=== PATIENT | male | born 1995 | race Two or more races ===

== ENCOUNTER 2016-05-09 08:11 | Emergency (ER) | payer OTHER ==
[2016-05-09] MEDS ORDERED: SODIUM CHLORIDE 0.9% 1,000 ML ONE ×2 (09:16→09:52)
[2016-05-09] MEDS ORDERED: DILTIAZEM HCL 5 MG/ML 5ML VIAL IV ONE (09:16)
[2016-05-09 09:32] LABS: ABSOLUTE NEUTROPHIL COUNT 8.6 K/mm3 (1.8-7.7); BASO % 0.2 % (0.2-1.0); EOS % 0.1 % (0.9-2.9); HEMATOCRIT 50.1 % (32.0-52.0); HEMOGLOBIN 16.9 gm/l (14.0-18.0); IMM NEUT% 0.3 % (0-1); LYMPH # 1.2 (1.0-4.8); LYMPH % 11.3 % (15-45); MEAN CORPUSCULAR HGB CONC 33.7 g/dl (33.0-37.0); MEAN PLATELET VOLUME 9.4 fl (7.4-10.4); MONO # 0.4 (0.0-0.8); MONO % 4.3 % (4-12); NEUT % 83.8 % (43-75); PLATELET COUNT 273 K/mm3 (130-400); RED CELL DISTRIBUTION WIDTH 12.8 % (11.5-14.5)
[2016-05-09 09:40] LABS: ALB/GLOB RATIO 1.3 (>1.0); ALBUMIN 4.8 gm/dL (3.5-5.7); CALCIUM 9.9 mg/dL (8.6-10.3)
[2016-05-09 09:43] LABS: TROPONIN I < 0.01 ng/ml (0.0-0.06)
[2016-05-09 09:47] LABS: CKMB ISOENZYME 1.4 ng/ml (0.6-6.3)
[2016-05-09] MEDS ORDERED: PROPOFOL 20 ML IV ONE (09:47)
[2016-05-09] MEDS ORDERED: KETOROLAC TROMETHAMINE 30 MG/ML 1 ML VIAL ONE (11:47)
[2016-05-09] MEDS ORDERED: MORPHINE SULFATE 4 MG/ML SYRINGE ONE ×2 (15:58→16:52)
== END 2016-05-09 12:22 | disposition home or self-care (01) ==
LOC: ED 08:11
DX: I48.91 Unspecified atrial fibrillation (principal); E66.9 Obesity, unspecified; Z68.41 Body mass index [BMI] 40.0-44.9, adult; K21.9 Gastro-esophageal reflux disease without esophagitis
CPT/HCPCS: 85025; 82553; 80053; 84484; 96375 ×2; 99284 ×2; 92960 ×2; 96374; 96361; J2270 ×2; J1885; J7030 ×2

== ENCOUNTER 2016-05-09 14:29 | Emergency (ER) | payer OTHER ==
[2016-05-09] MEDS ORDERED: MORPHINE SULFATE 4 MG/ML SYRINGE ONE (15:21)
[2016-05-09] MEDS ORDERED: SODIUM CHLORIDE 0.9% 1,000 ML ONE (15:21)
[2016-05-09 15:33] LABS: INR 1.09; PROTHROMBIN TIME 11.6 SECONDS (9.3-11.4)
--- NOTE | 2016-05-09 15:41 | CT ---
Exams: CT head without contrast, CT angiogram head, CT angiogram neck COMPARISON: None INDICATION: Amaurosis fugax following cardioversion. TECHNIQUE: CT examination of the head was obtained without contrast. CT angiogram of the head and neck was then obtained following the administration of 80 mL Isovue 370 intravenous contrast using a CT angiogram protocol which was supplemented with MIP reformations from the CT work station Findings: Unenhanced CT head: There is an acute on chronic panhemispheric subdural hematoma on the right, which measures up to 9 mm in width along the anterior right frontal lobe at the level of the mid convexity and 8 mm along the posterior right frontal parietal high convexity. On the left, there is a diffuse hypodense but homogeneous subdural fluid collection which has a maximum width of 7 mm. This either reflects a chronic subdural hematoma or subdural hygroma. There is diffuse sulcal effacement but there is no midline shift. There is no transtentorial herniation. Ventricles are noted to be small. There is no depressed skull fracture. Visualized paranasal sinuses and mastoid air cells are well aerated. CT angiogram neck: There is 2 vessel branching off of the aortic arch. The bilateral common carotid and internal carotid arteries are widely patent. The vertebral arteries are codominant and also widely patent. The joint to form the basilar artery which is patent. CT angiogram head: The intracranial portion of the carotid arteries is widely patent. The bilateral middle cerebral and anterior cerebral arteries are patent. The basilar artery is widely patent, as are the posterior cerebral arteries. No abnormal enhancement is seen following contrast administration. IMPRESSION: 1. Acute on chronic right-sided subdural hematoma and either a chronic subdural hematoma versus hygroma on the left which are fairly symmetric in size. These are producing mass effect with diffuse sulcal effacement and narrowing of the ventricles, however there is no midline shift or transtentorial herniation. No CT evidence of acute ischemia. 2. CT angiogram of the head and neck are within normal limits. Critical results called to Dr. Sesay at 1525 hours 05/09/2016.
== END 2016-05-09 17:43 | disposition short-term general hospital (02) ==
LOC: ED 14:29
DX: S06.5X1A Traumatic subdural hemorrhage with loss of consciousness of 30 minutes or less, initial encounter (principal); G45.3 Amaurosis fugax; K21.9 Gastro-esophageal reflux disease without esophagitis; E66.9 Obesity, unspecified; Z68.41 Body mass index [BMI] 40.0-44.9, adult; I48.91 Unspecified atrial fibrillation; W19.XXXA Unspecified fall, initial encounter; Y92.003 Bedroom of unspecified non-institutional (private) residence as the place of occurrence of the external cause